=== PATIENT | male | born 1940 | race Two or more races ===

== ENCOUNTER 2017-01-26 10:34 | Emergency (ER) | payer MEDICARE, MEDICAID ==
[~2017-01-26 10:34] MED LIST: AKWA TEARS15 ML; ARTIFICIAL TEAR1510 EACH EYE; ASPIRIN EC81 MG PO; ASPIRIN81 MG; ATORVASTATIN CA40 M1 PO; AUGMENTIN 875-11 TAB; BACITRACIN1 G1 TOP; BACTRIM DS TABL1 TAB; BENICAR20 MG; CALCITRIOL0.25 MC1 PO; CALCITRIOL0.5 MCG; CARDURA2 M2 PO; CHANTIX1 M1 PO; CLARITIN10 M2 PO; COLACE100 M1 PO; COZAAR100 MG PO; DULCOLAX10 MG RC; FUROSEMIDE40 M2 PO; FUROSEMIDE40 MG; GLUCAGEN1 MG/1 ML IM; HUMALOG100 UNIT/1 SQ; INDOMETHACIN50 M1 PO; LANTUS SOL100 UNIT/1 SC; LANTUS SOL100 UNIT/1 SQ; LANTUS SOLOSTAR3 ML SQ; LANTUS100 U/ML; LANTUS100 UNITS/ SC; LEVEMIR FL100 UNIT/2 SC; LEVEMIR100 UNITS/ SC; LEVOTHYROXINE150 MC3 PO; LEVOTHYROXINE175 MC2 PO; LEVOTHYROXINE200 MC4 PO; LEVOXYL125 MC1 PO; LEXAPRO10 M2 PO; LIPITOR20 MG; LIPITOR20 MG PO; LORATADINE10 M2 PO; LYRICA75 MG; METOPROLOL SUCC25 M1 PO; METOPROLOL TART25 MG; MIRALAX17 G2 PO; NORCO 5-325 TA1 EACH PO; NORVASC5 M2 PO; NOVOLOG FL100 UNIT/2; NOVOLOG FL100 UNIT/2 SC; NOVOLOG100 U/M; PERCOCET 5/3251 TAB PO; SENNA S TABLET1 EACH PO; SODIUM BICARBO650 M1 PO; SSD25 GM TP; SULFAMYLON SOL250 M1 EXT; SULFAMYLON SOL250 M1 TOP; SWEEN 24255 GM TOP; SYNTHROID200 MCG; SYSTANE 0.3-0.1 EACH OP; TOPROL XL50 M1 PO; TRAMADOL HCL50 MG; TYLENOL WITH C1 EACH PO; TYLENOL325 M2 PO; VITAMIN D1000 UNI3 PO; VITAMIN D250000 UNI1 PO; VITAMIN D250000 UNIT PO; VITAMIN D31000 UNI3 PO; VITAMIN D350000 UNI1 PO; VITAMIN D50000 UNIT; [UNRECOGNIZED DRUG - OTHER]
[2017-01-26] MEDS ORDERED: KEPPRA500 M3 PO (10:59)
[2017-01-26] MEDS ORDERED: MAGNESIUM DR64 M2 PO (11:07)
[2017-01-26] MEDS ORDERED: METOPROLOL TART25 M1 PO (11:10)
[2017-01-26] MEDS ORDERED: NOVOLOG FL100 UNIT/2 SC (11:10)
[2017-01-26] MEDS ORDERED: HEMODIALYSIS (11:23)
[2017-01-26 11:38] LABS: BASO % 0.3 % (0-2); EOS % 5.1 % (0-7); EOSINOPHIL ABSOLUTE COUNT 0.5 tho/cmm (0.0-0.7); HCT-HEMATOCRIT 38.8 % (36.0-53.5); HGB-HEMOGLOBIN 12.6 gm/dl (13.5-17.0); IMMATURE GRANULOCYTES ABSOLUTE 0.02 tho/cmm (0-0.03); IMMATURE GRANULOCYTES PERCENT 0.2 % (0-0.3); LYMPH % 18.1 % (20-45); LYMPH ABSOLUTE COUNT 1.8 tho/cmm (0.8-4.5); MCH (MEAN CORPUSCULAR HGB) 29.6 pg (28.0-32.0); MCHC MEAN CORPUSCULAR HGB CONC 32.5 % (32.0-36.0); MCV (MEAN CELL VOLUME) 91.3 fl (82.0-96.0); MEAN PLATELET VOLUME 9.2 cmc (9.4-12.4); MONO % 6.6 % (0-12); MONOCYTE ABSOLUTE COUNT 0.7 tho/cmm (0.0-1.2); NEUTROPHIL ABSOLUTE COUNT 6.8 tho/cmm (1.6-8.0); NEUTROPHIL-AUTOMATED 6.8 tho/cmm (1.6-8.0); NEUTROPHILS % 69.7 % (40-80); PLATELET COUNT 164 tho/cmm (150-450); RED BLOOD COUNT 4.25 mil/cmm (4.40-5.70); RED CELL DISTRIBUTION WIDTH 13.1 % (12.4-16.4); WHITE BLOOD COUNT 9.8 tho/cmm (4.0-10.0)
[2017-01-26 11:54] LABS: ALB/GLOB RATIO 0.8 (0.8-2.0); ALBUMIN 2.8 g/dl (3.5-5.0); ALKALINE PHOSPHATASE 159 U/L (33-138); ALT/SGPT 10 U/L (12-78); ANION GAP 10 mmol/L (0-20); AST/SGOT 14 U/L (10-40); BILIRUBIN,TOTAL 0.3 mg/dl (0.0-1.5); BLOOD UREA NITROGEN 17 mg/dl (6-24); CALCIUM 7.5 mg/dl (8.5-10.5); CARBON DIOXIDE-VENOUS 31 mmol/L (22-32); CHLORIDE 105 mmol/l (96-110); CREATININE 2.89 mg/dl (0.60-1.30); GLUCOSE 321 mg/dL (70-110); POTASSIUM 4.3 mmol/L (3.7-5.1); SODIUM 142 mmol/L (135-145); eGFR VALUE FOR BLACK 23 mL/Min
[2017-01-29] MEDS ORDERED: MEDS (16:31)
== END 2017-01-26 12:23 ==
LOC: EDMED 10:34
PROVIDERS: Emergency Medicine
DX: R06.00 Dyspnea, unspecified (principal); I12.9 Hypertensive chronic kidney disease with stage 1 through stage 4 chronic kidney disease, or unspecified chronic kidney disease; N18.9 Chronic kidney disease, unspecified; I25.10 Atherosclerotic heart disease of native coronary artery without angina pectoris; E78.5 Hyperlipidemia, unspecified; Z86.73 Personal history of transient ischemic attack (TIA), and cerebral infarction without residual deficits; Z88.5 Allergy status to narcotic agent; Z79.4 Long term (current) use of insulin; Z79.899 Other long term (current) drug therapy; F17.200 Nicotine dependence, unspecified, uncomplicated

== ENCOUNTER 2017-01-30 10:14 | Day surgery (SDC) | payer MEDICARE, MEDICAID ==
[~2017-01-30 10:14] MED LIST changes: +HEMODIALYSIS; +KEPPRA500 M3 PO; +MAGNESIUM DR64 M2 PO; +MEDS; +METOPROLOL TART25 M1 PO
[2017-01-30 11:18] LABS: PROTHROMBIN TIME 11.9 SECONDS (9.0-13.6)
[2017-01-30 12:27] LABS: ANION GAP 12 mmol/L (0-20); BLOOD UREA NITROGEN 20 mg/dl (6-24); CALCIUM 7.8 mg/dl (8.5-10.5); CARBON DIOXIDE-VENOUS 30 mmol/L (22-32); CHLORIDE 103 mmol/l (96-110); CREATININE 3.01 mg/dl (0.60-1.30); GLUCOSE 231 mg/dL (70-110); POTASSIUM 4.7 mmol/L (3.7-5.1); SODIUM 140 mmol/L (135-145); eGFR VALUE FOR BLACK 22 mL/Min
== END 2017-01-30 18:20 ==
LOC: SRG 10:14 → SHSC 10:19 → ORW 12:05 → SHSC 14:40
PROVIDERS: Anesthesiology; Surgery Vascular Surgery
DX: E11.22 Type 2 diabetes mellitus with diabetic chronic kidney disease (principal); I12.0 Hypertensive chronic kidney disease with stage 5 chronic kidney disease or end stage renal disease; N18.6 End stage renal disease; I25.10 Atherosclerotic heart disease of native coronary artery without angina pectoris; Z95.1 Presence of aortocoronary bypass graft; E03.9 Hypothyroidism, unspecified; Z98.49 Cataract extraction status, unspecified eye; Z86.73 Personal history of transient ischemic attack (TIA), and cerebral infarction without residual deficits; Z79.899 Other long term (current) drug therapy; Z88.6 Allergy status to analgesic agent
CPT/HCPCS: C1768; C9290; J0690; J1644; J2720; J7030

== ENCOUNTER 2017-02-18 17:52 | Inpatient (IN) | payer MEDICARE, MEDICAID ==
[2017-02-18] MEDS ORDERED: BISCOLAX10 MG PR (18:28)
[2017-02-18] MEDS ORDERED: HYDROCODON-ACE1 EA16 PO ×2 (18:29→18:30)
[2017-02-18] MEDS ORDERED: FLEET ENEMA133 ML PR (18:29)
[2017-02-18 19:01] LABS: BASO % 0.1 % (0-2); EOS % 0.5 % (0-7); EOSINOPHIL ABSOLUTE COUNT 0.1 tho/cmm (0.0-0.7); HCT-HEMATOCRIT 31.9 % (36.0-53.5); HGB-HEMOGLOBIN 10.1 gm/dl (13.5-17.0); IMMATURE GRANULOCYTES ABSOLUTE 0.14 tho/cmm (0-0.03); IMMATURE GRANULOCYTES PERCENT 0.5 % (0-0.3); LYMPH % 8.3 % (20-45); LYMPH ABSOLUTE COUNT 2.3 tho/cmm (0.8-4.5); MCH (MEAN CORPUSCULAR HGB) 29.4 pg (28.0-32.0); MCHC MEAN CORPUSCULAR HGB CONC 31.7 % (32.0-36.0); MCV (MEAN CELL VOLUME) 92.7 fl (82.0-96.0); MEAN PLATELET VOLUME 8.5 cmc (9.4-12.4); MONO % 5.9 % (0-12); MONOCYTE ABSOLUTE COUNT 1.6 tho/cmm (0.0-1.2); NEUTROPHIL ABSOLUTE COUNT 23.1 tho/cmm (1.6-8.0); NEUTROPHIL-AUTOMATED 23.1 tho/cmm (1.6-8.0); NEUTROPHILS % 84.7 % (40-80); PLATELET COUNT 264 tho/cmm (150-450); RED BLOOD COUNT 3.44 mil/cmm (4.40-5.70); WHITE BLOOD COUNT 27.3 tho/cmm (4.0-10.0)
[2017-02-18 19:13] LABS: ANION GAP 12 mmol/L (0-20); BLOOD UREA NITROGEN 44 mg/dl (6-24); CALCIUM 7.9 mg/dl (8.5-10.5); CARBON DIOXIDE-VENOUS 28 mmol/L (22-32); CHLORIDE 99 mmol/l (96-110); CREATININE 4.45 mg/dl (0.60-1.30); GLUCOSE 234 mg/dL (70-110); POTASSIUM 4.3 mmol/L (3.7-5.1); SODIUM 135 mmol/L (135-145); eGFR VALUE FOR BLACK 14 mL/Min
[2017-02-18 19:38] LABS: PROCALCITONIN 0.58 ng/ml (0.05-0.09)
[2017-02-18 20:30] LABS: URINE BILIRUBIN NEGATIVE (NEG); URINE BLOOD SMALL (NEG); URINE GLUCOSE (UA) MODERATE (NEG); URINE KETONE NEGATIVE (NEG); URINE LEUKOCYTE ESTERASE NEGATIVE (NEG); URINE NITRITE NEGATIVE (NEG); URINE PROTEIN MODERATE (NEG)
[2017-02-18 20:31] LABS: URINE APPEARANCE HAZY; URINE COLOR DARK YELLOW
[2017-02-18 20:40] LABS: URINE RBC RARE /[HPF] (0-5); URINE WBC RARE /[HPF] (0-5)
[2017-02-18 20:41] LABS: URINE EPITHELIAL CELLS RARE /[HPF] (0-10)
[2017-02-19 05:35] LABS: BASO % 0.2 % (0-2); BASO ABSOLUTE COUNT 0.1 tho/cmm (0.0-0.2); EOS % 1.1 % (0-7); EOSINOPHIL ABSOLUTE COUNT 0.2 tho/cmm (0.0-0.7); HCT-HEMATOCRIT 31.9 % (36.0-53.5); IMMATURE GRANULOCYTES ABSOLUTE 0.12 tho/cmm (0-0.03); IMMATURE GRANULOCYTES PERCENT 0.5 % (0-0.3); LYMPH ABSOLUTE COUNT 1.6 tho/cmm (0.8-4.5); MCH (MEAN CORPUSCULAR HGB) 28.7 pg (28.0-32.0); MCHC MEAN CORPUSCULAR HGB CONC 31.3 % (32.0-36.0); MCV (MEAN CELL VOLUME) 91.7 fl (82.0-96.0); MEAN PLATELET VOLUME 8.2 cmc (9.4-12.4); MONO % 6.2 % (0-12); MONOCYTE ABSOLUTE COUNT 1.4 tho/cmm (0.0-1.2); NEUTROPHIL ABSOLUTE COUNT 19.1 tho/cmm (1.6-8.0); NEUTROPHIL-AUTOMATED 19.1 tho/cmm (1.6-8.0); PLATELET COUNT 254 tho/cmm (150-450); RED BLOOD COUNT 3.48 mil/cmm (4.40-5.70); RED CELL DISTRIBUTION WIDTH 15.7 % (12.4-16.4); WHITE BLOOD COUNT 22.5 tho/cmm (4.0-10.0)
[2017-02-19 05:49] LABS: ALB/GLOB RATIO 0.5 (0.8-2.0); ALBUMIN 2.1 g/dl (3.5-5.0); ALKALINE PHOSPHATASE 135 U/L (33-138); ANION GAP 16 mmol/L (0-20); AST/SGOT 13 U/L (10-40); BILIRUBIN,TOTAL 0.5 mg/dl (0.0-1.5); BLOOD UREA NITROGEN 46 mg/dl (6-24); CALCIUM 7.5 mg/dl (8.5-10.5); CARBON DIOXIDE-VENOUS 27 mmol/L (22-32); CHLORIDE 101 mmol/l (96-110); CREATININE 4.45 mg/dl (0.60-1.30); GLUCOSE 147 mg/dL (70-110); POTASSIUM 4.5 mmol/L (3.7-5.1); SODIUM 139 mmol/L (135-145); eGFR VALUE FOR BLACK 14 mL/Min
[2017-02-19 06:15] LABS: ALT/SGPT <10 U/L (12-78); C-REACTIVE PROTEIN 22.2 mg/dl (0-0.9)
[2017-02-19 06:27] LABS: PROCALCITONIN 0.58 ng/ml (0.05-0.09)
[2017-02-20 06:13] LABS: BLOOD UREA NITROGEN 29 mg/dl (6-24); CALCIUM 7.8 mg/dl (8.5-10.5); CARBON DIOXIDE-VENOUS 27 mmol/L (22-32); CHLORIDE 103 mmol/l (96-110); PHOSPHOROUS 2.9 mg/dl (2.5-4.9); SODIUM 137 mmol/L (135-145); eGFR VALUE FOR BLACK 21 mL/Min
[2017-02-20 06:24] LABS: BASO % 0.2 % (0-2); EOS % 1.9 % (0-7); EOSINOPHIL ABSOLUTE COUNT 0.3 tho/cmm (0.0-0.7); HCT-HEMATOCRIT 29.3 % (36.0-53.5); HGB-HEMOGLOBIN 9.3 gm/dl (13.5-17.0); IMMATURE GRANULOCYTES ABSOLUTE 0.07 tho/cmm (0-0.03); IMMATURE GRANULOCYTES PERCENT 0.4 % (0-0.3); LYMPH % 8.7 % (20-45); LYMPH ABSOLUTE COUNT 1.5 tho/cmm (0.8-4.5); MCH (MEAN CORPUSCULAR HGB) 29.2 pg (28.0-32.0); MCHC MEAN CORPUSCULAR HGB CONC 31.7 % (32.0-36.0); MCV (MEAN CELL VOLUME) 91.8 fl (82.0-96.0); MEAN PLATELET VOLUME 8.4 cmc (9.4-12.4); MONO % 7.9 % (0-12); MONOCYTE ABSOLUTE COUNT 1.4 tho/cmm (0.0-1.2); NEUTROPHIL ABSOLUTE COUNT 13.9 tho/cmm (1.6-8.0); NEUTROPHIL-AUTOMATED 13.9 tho/cmm (1.6-8.0); NEUTROPHILS % 80.9 % (40-80); PLATELET COUNT 289 tho/cmm (150-450); RED BLOOD COUNT 3.19 mil/cmm (4.40-5.70); RED CELL DISTRIBUTION WIDTH 15.5 % (12.4-16.4); WHITE BLOOD COUNT 17.2 tho/cmm (4.0-10.0)
[2017-02-20 07:00] LABS: ANION GAP 11 mmol/L (0-20); CREATININE 3.19 mg/dl (0.60-1.30); GLUCOSE 55 mg/dL (70-110); POTASSIUM 3.6 mmol/L (3.7-5.1)
[2017-02-21 06:34] LABS: PROCALCITONIN 0.59 ng/ml (0.05-0.09)
[2017-02-22 06:21] LABS: BASO % 0.3 % (0-2); EOS % 3.2 % (0-7); EOSINOPHIL ABSOLUTE COUNT 0.4 tho/cmm (0.0-0.7); HCT-HEMATOCRIT 29.2 % (36.0-53.5); HGB-HEMOGLOBIN 9.4 gm/dl (13.5-17.0); IMMATURE GRANULOCYTES ABSOLUTE 0.07 tho/cmm (0-0.03); IMMATURE GRANULOCYTES PERCENT 0.6 % (0-0.3); LYMPH % 24.9 % (20-45); LYMPH ABSOLUTE COUNT 2.8 tho/cmm (0.8-4.5); MCH (MEAN CORPUSCULAR HGB) 28.9 pg (28.0-32.0); MCHC MEAN CORPUSCULAR HGB CONC 32.2 % (32.0-36.0); MCV (MEAN CELL VOLUME) 89.8 fl (82.0-96.0); MEAN PLATELET VOLUME 8.1 cmc (9.4-12.4); MONO % 10.5 % (0-12); MONOCYTE ABSOLUTE COUNT 1.2 tho/cmm (0.0-1.2); NEUTROPHIL ABSOLUTE COUNT 6.7 tho/cmm (1.6-8.0); NEUTROPHIL-AUTOMATED 6.7 tho/cmm (1.6-8.0); NEUTROPHILS % 60.5 % (40-80); PLATELET COUNT 293 tho/cmm (150-450); RED BLOOD COUNT 3.25 mil/cmm (4.40-5.70); WHITE BLOOD COUNT 11.1 tho/cmm (4.0-10.0)
[2017-02-23] MEDS ORDERED: SINEMET 25-1001 EAC1 PO (12:42)
[2017-02-23 20:46] LABS: BASO % 0.3 % (0-2); BASO ABSOLUTE COUNT 0.1 tho/cmm (0.0-0.2); EOSINOPHIL ABSOLUTE COUNT 0.1 tho/cmm (0.0-0.7); HCT-HEMATOCRIT 32.2 % (36.0-53.5); HGB-HEMOGLOBIN 10.2 gm/dl (13.5-17.0); IMMATURE GRANULOCYTES ABSOLUTE 0.25 tho/cmm (0-0.03); IMMATURE GRANULOCYTES PERCENT 1.7 % (0-0.3); LYMPH % 11.2 % (20-45); LYMPH ABSOLUTE COUNT 1.6 tho/cmm (0.8-4.5); MCH (MEAN CORPUSCULAR HGB) 28.8 pg (28.0-32.0); MCHC MEAN CORPUSCULAR HGB CONC 31.7 % (32.0-36.0); MEAN PLATELET VOLUME 8.3 cmc (9.4-12.4); MONO % 11.1 % (0-12); MONOCYTE ABSOLUTE COUNT 1.6 tho/cmm (0.0-1.2); NEUTROPHIL ABSOLUTE COUNT 10.7 tho/cmm (1.6-8.0); NEUTROPHIL-AUTOMATED 10.7 tho/cmm (1.6-8.0); NEUTROPHILS % 74.7 % (40-80); PLATELET COUNT 331 tho/cmm (150-450); RED BLOOD COUNT 3.54 mil/cmm (4.40-5.70); RED CELL DISTRIBUTION WIDTH 15.4 % (12.4-16.4); WHITE BLOOD COUNT 14.4 tho/cmm (4.0-10.0)
[2017-02-23 21:03] LABS: ANION GAP 13 mmol/L (0-20); BLOOD UREA NITROGEN 13 mg/dl (6-24); CALCIUM 8.1 mg/dl (8.5-10.5); CARBON DIOXIDE-VENOUS 27 mmol/L (22-32); CHLORIDE 102 mmol/l (96-110); CREATININE 2.35 mg/dl (0.60-1.30); GLUCOSE 187 mg/dL (70-110); POTASSIUM 4.4 mmol/L (3.7-5.1); SODIUM 138 mmol/L (135-145); eGFR VALUE FOR BLACK 30 mL/Min
[2017-02-23 23:19] LABS: PROCALCITONIN 1.53 ng/ml (0.05-0.09)
--- NOTE | 2017-02-24 02:07 | NUR ---
PT HAVING INCREASED LETHARGY; DOES NOT AROUSE TO PAINFUL STIMULI. DAY RN CALLED AND GOT ORDERS FOR CT HEAD, CXR, EKG, AND LABS. GAVE MD AN UPDATE WITH THE LAB VALUES AND ADDITIONAL LABS WERE ORDERED (SEE CHART) ALONG WITH BLOOD CULTURES. PT CONTINUES TO BE LETHARGIC AND STILL DOES NOT AROUSE TO PAINFUL STIMULI.
[2017-02-25 05:36] LABS: BASO % 0.5 % (0-2); BASO ABSOLUTE COUNT 0.1 tho/cmm (0.0-0.2); EOS % 1.4 % (0-7); EOSINOPHIL ABSOLUTE COUNT 0.2 tho/cmm (0.0-0.7); HCT-HEMATOCRIT 32.5 % (36.0-53.5); HGB-HEMOGLOBIN 10.3 gm/dl (13.5-17.0); IMMATURE GRANULOCYTES ABSOLUTE 0.28 tho/cmm (0-0.03); IMMATURE GRANULOCYTES PERCENT 2.3 % (0-0.3); LYMPH % 14.3 % (20-45); LYMPH ABSOLUTE COUNT 1.7 tho/cmm (0.8-4.5); MCH (MEAN CORPUSCULAR HGB) 28.7 pg (28.0-32.0); MCHC MEAN CORPUSCULAR HGB CONC 31.7 % (32.0-36.0); MCV (MEAN CELL VOLUME) 90.5 fl (82.0-96.0); MEAN PLATELET VOLUME 8.3 cmc (9.4-12.4); MONO % 11.4 % (0-12); MONOCYTE ABSOLUTE COUNT 1.4 tho/cmm (0.0-1.2); NEUTROPHIL ABSOLUTE COUNT 8.5 tho/cmm (1.6-8.0); NEUTROPHIL-AUTOMATED 8.5 tho/cmm (1.6-8.0); NEUTROPHILS % 70.1 % (40-80); PLATELET COUNT 330 tho/cmm (150-450); RED BLOOD COUNT 3.59 mil/cmm (4.40-5.70); WHITE BLOOD COUNT 12.1 tho/cmm (4.0-10.0)
[2017-02-25 05:57] LABS: ANION GAP 16 mmol/L (0-20); CARBON DIOXIDE-VENOUS 23 mmol/L (22-32); CHLORIDE 105 mmol/l (96-110); CHOLESTEROL 99 mg/dl (120-200); GLUCOSE 195 mg/dL (70-110); HDL CHOLESTEROL 53 mg/dl (40-60); LDL CHOLESTEROL 27 mg/dl (0-99); POTASSIUM 4.4 mmol/L (3.7-5.1); SODIUM 140 mmol/L (135-145); TRIGLYCERIDES 95 mg/dl (<149); VLDL 19 mg/dl (0-30); eGFR VALUE FOR BLACK 17 mL/Min
[2017-02-25 06:36] LABS: BLOOD UREA NITROGEN 26 mg/dl (6-24); CREATININE 3.66 mg/dl (0.60-1.30)
[2017-02-25 06:44] LABS: PROCALCITONIN 0.86 ng/ml (0.05-0.09)
[2017-02-26 11:06] LABS: BASO % 0.3 % (0-2); BASO ABSOLUTE COUNT 0.1 tho/cmm (0.0-0.2); EOS % 1.3 % (0-7); EOSINOPHIL ABSOLUTE COUNT 0.2 tho/cmm (0.0-0.7); HCT-HEMATOCRIT 34.1 % (36.0-53.5); HGB-HEMOGLOBIN 10.9 gm/dl (13.5-17.0); IMMATURE GRANULOCYTES ABSOLUTE 0.31 tho/cmm (0-0.03); IMMATURE GRANULOCYTES PERCENT 2.1 % (0-0.3); LYMPH % 7.7 % (20-45); LYMPH ABSOLUTE COUNT 1.2 tho/cmm (0.8-4.5); MCV (MEAN CELL VOLUME) 90.7 fl (82.0-96.0); MEAN PLATELET VOLUME 8.3 cmc (9.4-12.4); MONO % 6.8 % (0-12); NEUTROPHIL ABSOLUTE COUNT 12.2 tho/cmm (1.6-8.0); NEUTROPHIL-AUTOMATED 12.2 tho/cmm (1.6-8.0); NEUTROPHILS % 81.8 % (40-80); PLATELET COUNT 345 tho/cmm (150-450); RED BLOOD COUNT 3.76 mil/cmm (4.40-5.70); RED CELL DISTRIBUTION WIDTH 15.9 % (12.4-16.4); WHITE BLOOD COUNT 14.9 tho/cmm (4.0-10.0)
[2017-02-26 11:18] LABS: ABG CO2 ARTERIAL 25 mmol/L (21-27); ARTERIAL BLD GAS O2 SATURATION 100 % (95-98); ARTERIAL BLOOD GAS PCO2 35 mmHg (32-45); ARTERIAL PO2 157 mmHg (70-100); BICARBONATE 24 mmol/L (21-28); BLOOD GAS BASE EXCESS 1 mM/L (-/+3); PH 7.46 Units (7.35-7.45)
[2017-02-26 11:34] LABS: ALB/GLOB RATIO 0.5 (0.8-2.0); ALBUMIN 2.4 g/dl (3.5-5.0); ALKALINE PHOSPHATASE 141 U/L (33-138); AST/SGOT 11 U/L (10-40); BILIRUBIN,TOTAL 0.5 mg/dl (0.0-1.5); BLOOD UREA NITROGEN 17 mg/dl (6-24); CARBON DIOXIDE-VENOUS 25 mmol/L (22-32); CHLORIDE 106 mmol/l (96-110); GLUCOSE 185 mg/dL (70-110); SODIUM 142 mmol/L (135-145)
[2017-02-26 11:36] LABS: ANION GAP 15 mmol/L (0-20); CREATININE 2.34 mg/dl (0.60-1.30); POTASSIUM 3.5 mmol/L (3.7-5.1); eGFR VALUE FOR BLACK 30 mL/Min
[2017-02-26 11:37] LABS: ALT/SGPT 9 U/L (12-78)
--- NOTE | 2017-02-26 12:45 | NUR ---
DAUGHTER AT BEDSIDE, REPORTS PT WOULD VALUE HAVING THE SACRAMENT OF THE SICK. SPOKE WITH CHAPLAIN PHILIPPE - SHE CALLED FATHER AND HE WILL SEE PT TODAY.
[2017-02-27 04:09] LABS: ALBUMIN 2.5 g/dl (3.5-5.0); ANION GAP 14 mmol/L (0-20); BLOOD UREA NITROGEN 22 mg/dl (6-24); CALCIUM 7.7 mg/dl (8.5-10.5); CARBON DIOXIDE-VENOUS 24 mmol/L (22-32); CHLORIDE 107 mmol/l (96-110); GLUCOSE 121 mg/dL (70-110); SODIUM 141 mmol/L (135-145); eGFR VALUE FOR BLACK 18 mL/Min
[2017-02-27 04:17] LABS: CREATININE 3.56 mg/dl (0.60-1.30)
[2017-02-27 04:43] LABS: ABG CO2 ARTERIAL 25 mmol/L (21-27); ARTERIAL BLD GAS O2 SATURATION 97 % (95-98); ARTERIAL BLOOD GAS PCO2 38 mmHg (32-45); ARTERIAL PO2 109 mmHg (70-100); BICARBONATE 24 mmol/L (21-28); BLOOD GAS BASE EXCESS 0 mM/L (-/+3); PH 7.41 Units (7.35-7.45)
[2017-02-27 05:21] LABS: PROCALCITONIN 2.06 ng/ml (0.05-0.09)
[2017-03-01 11:45] LABS: PROCALCITONIN 0.42 ng/ml (0.05-0.09)
[2017-03-01] MEDS ORDERED: HEPARIN SO5000 UNIT1 SC (15:06)
[2017-03-01] MEDS ORDERED: TYLENOL325 M2 PO (15:09)
[2017-03-01] MEDS ORDERED: ASPIRIN325 M3 PO (15:10)
[2017-03-01] MEDS ORDERED: ZOFRAN4 M2 PO (15:13)
[2017-03-01] MEDS ORDERED: NOVOLOG (15:18)
== END 2017-03-01 15:33 | DRG 70 ==
LOC: EDMED 17:52 → EMR2 02-19 00:55 → 5EB 02-19 00:56 → CCU 02-26 11:03 → 5EB 02-28 17:15
PROVIDERS: Emergency Medicine; Family Medicine; Internal Medicine Critical Care Medicine; Internal Medicine Nephrology; ADMIT Family Medicine
PROC: 5A1D60Z (ICD-10-PCS; principal; 2017-02-19)
PROC: B348ZZZ Ultrasonography of Bilateral Internal Carotid Arteries (ICD-10-PCS; 2017-02-24)
PROC: 5A1935Z Respiratory Ventilation, Less than 24 Consecutive Hours (ICD-10-PCS; 2017-02-26)
DX: G93.41 Metabolic encephalopathy (principal); J96.01 Acute respiratory failure with hypoxia; I62.9 Nontraumatic intracranial hemorrhage, unspecified; E46 Unspecified protein-calorie malnutrition; N25.81 Secondary hyperparathyroidism of renal origin; R13.10 Dysphagia, unspecified; N18.6 End stage renal disease; E11.22 Type 2 diabetes mellitus with diabetic chronic kidney disease; I13.11 Hypertensive heart and chronic kidney disease without heart failure, with stage 5 chronic kidney disease, or end stage renal disease; J98.11 Atelectasis; Z51.5 Encounter for palliative care; E11.621 Type 2 diabetes mellitus with foot ulcer; Z99.2 Dependence on renal dialysis; D63.1 Anemia in chronic kidney disease; E03.9 Hypothyroidism, unspecified; E21.3 Hyperparathyroidism, unspecified; F09 Unspecified mental disorder due to known physiological condition; G40.909 Epilepsy, unspecified, not intractable, without status epilepticus; I25.10 Atherosclerotic heart disease of native coronary artery without angina pectoris; I25.2 Old myocardial infarction; I73.9 Peripheral vascular disease, unspecified; R62.7 Adult failure to thrive; I65.29 Occlusion and stenosis of unspecified carotid artery; Z96.642 Presence of left artificial hip joint; G31.9 Degenerative disease of nervous system, unspecified; Z68.21 Body mass index [BMI] 21.0-21.9, adult; L97.529 Non-pressure chronic ulcer of other part of left foot with unspecified severity; Z79.4 Long term (current) use of insulin; D72.829 Elevated white blood cell count, unspecified
CPT/HCPCS: C1751; G8987-GO-CL; G8988-GO-CK; G8989-GO-CL; G8996-GN-CJ; G8997-GN-CI; J0713; J0885; J1644; J1815; J1953; J2543; J3370; J7030; J7050; P9045; P9612

== ENCOUNTER 2017-03-04 11:55 | Inpatient (IN) | payer MEDICARE, MEDICAID ==
[~2017-03-04 11:55] MED LIST changes: +ASPIRIN325 M3 PO; +BISCOLAX10 MG PR; +FLEET ENEMA133 ML PR; +HEPARIN SO5000 UNIT1 SC; +HYDROCODON-ACE1 EA16 PO; +NOVOLOG; +SINEMET 25-1001 EAC1 PO; +ZOFRAN4 M2 PO
[2017-03-04 14:32] LABS: BASO % 0.1 % (0-2); HCT-HEMATOCRIT 32.9 % (36.0-53.5); HGB-HEMOGLOBIN 10.7 gm/dl (13.5-17.0); IMMATURE GRANULOCYTES ABSOLUTE 0.49 tho/cmm (0-0.03); IMMATURE GRANULOCYTES PERCENT 2.3 % (0-0.3); LYMPH % 3.8 % (20-45); LYMPH ABSOLUTE COUNT 0.8 tho/cmm (0.8-4.5); MCH (MEAN CORPUSCULAR HGB) 29.1 pg (28.0-32.0); MCHC MEAN CORPUSCULAR HGB CONC 32.5 % (32.0-36.0); MCV (MEAN CELL VOLUME) 89.4 fl (82.0-96.0); MEAN PLATELET VOLUME 8.1 cmc (9.4-12.4); MONO % 7.2 % (0-12); MONOCYTE ABSOLUTE COUNT 1.6 tho/cmm (0.0-1.2); NEUTROPHIL ABSOLUTE COUNT 18.6 tho/cmm (1.6-8.0); NEUTROPHIL-AUTOMATED 18.6 tho/cmm (1.6-8.0); NEUTROPHILS % 86.6 % (40-80); PLATELET COUNT 356 tho/cmm (150-450); RED BLOOD COUNT 3.68 mil/cmm (4.40-5.70); RED CELL DISTRIBUTION WIDTH 16.2 % (12.4-16.4); WHITE BLOOD COUNT 21.5 tho/cmm (4.0-10.0)
[2017-03-04 14:41] LABS: ANION GAP 19 mmol/L (0-20); BLOOD UREA NITROGEN 15 mg/dl (6-24); CALCIUM 7.9 mg/dl (8.5-10.5); CARBON DIOXIDE-VENOUS 22 mmol/L (22-32); CHLORIDE 101 mmol/l (96-110); CREATININE 1.95 mg/dl (0.60-1.30); GLUCOSE 269 mg/dL (70-110); POTASSIUM 3.6 mmol/L (3.7-5.1); SODIUM 138 mmol/L (135-145); eGFR VALUE FOR BLACK 37 mL/Min
[2017-03-04 15:34] LABS: PROCALCITONIN 0.57 ng/ml (0.05-0.09)
--- NOTE | 2017-03-04 18:30 | NUR ---
1200 RECIEVED VIA AMBULANCE FROM [facility]. EYES CLOSED, ARMS FLEXED WITH HANDS IN FLEXED POSITION. LEGS STIFF. GAZE MIDLINE CONJUGATE. NO RESPONSE TO PAIN OR TACTILE STIMULI OTHER THAN MOANS. YAWNS AND HAS HICCOUGHS. [address] MOON HERE. CONDITION UNCHANGED. 1415 IV STARTED IN RT. FOREARM AND 500CC NS BOLUS STARTED. NO CHANGE IN NEURO STATUS. INCONTINENT OF SOFT BROWN STOOL AND SM. AMT. URINE. [address] SCAN VIA BED. 1600 CT RESULTS RECIEVED FROM DR. AZUL WHO ATTEMPTED TO CALL DR. ROSE. DAUGHTER GIVEN PRELIMINARY CT RESULTS. PAST[facility] CALLED. [address]15 DR[address] ROSE CALLED WITH CT RESULTS AND CONDITION UPDATE, ORDERS RECIEVED. 1700 DR. ROSE CALLS BACK, ADDITIONAL ORDERS RECIEVED. 1800 PROTAMINE 12.5MG IVP GIVEN OVER [address] ROCA HERE, EXAMINES PATIENT AND TALKS WITH FAMILY. NYSTAGMUS OF EYES TO LEFT NOTED.
[2017-03-04 21:46] LABS: BASO % 0.1 % (0-2); HCT-HEMATOCRIT 31.9 % (36.0-53.5); HGB-HEMOGLOBIN 10.3 gm/dl (13.5-17.0); IMMATURE GRANULOCYTES ABSOLUTE 0.35 tho/cmm (0-0.03); IMMATURE GRANULOCYTES PERCENT 2.2 % (0-0.3); LYMPH % 5.1 % (20-45); LYMPH ABSOLUTE COUNT 0.8 tho/cmm (0.8-4.5); MCH (MEAN CORPUSCULAR HGB) 29.1 pg (28.0-32.0); MCHC MEAN CORPUSCULAR HGB CONC 32.3 % (32.0-36.0); MCV (MEAN CELL VOLUME) 90.1 fl (82.0-96.0); MEAN PLATELET VOLUME 8.3 cmc (9.4-12.4); MONO % 3.1 % (0-12); MONOCYTE ABSOLUTE COUNT 0.5 tho/cmm (0.0-1.2); NEUTROPHIL ABSOLUTE COUNT 14.4 tho/cmm (1.6-8.0); NEUTROPHIL-AUTOMATED 14.4 tho/cmm (1.6-8.0); NEUTROPHILS % 89.5 % (40-80); PLATELET COUNT 359 tho/cmm (150-450); RED BLOOD COUNT 3.54 mil/cmm (4.40-5.70); WHITE BLOOD COUNT 16.1 tho/cmm (4.0-10.0)
[2017-03-04 21:52] LABS: ABG CO2 ARTERIAL 21 mmol/L (21-27); ARTERIAL BLD GAS O2 SATURATION 98 % (95-98); ARTERIAL BLOOD GAS PCO2 31 mmHg (32-45); ARTERIAL PO2 99 mmHg (70-100); BICARBONATE 20 mmol/L (21-28); BLOOD GAS BASE EXCESS -4 mM/L (-/+3); PH 7.42 Units (7.35-7.45)
[2017-03-04 21:58] LABS: ANION GAP 18 mmol/L (0-20); BLOOD UREA NITROGEN 21 mg/dl (6-24); CALCIUM 7.6 mg/dl (8.5-10.5); CARBON DIOXIDE-VENOUS 21 mmol/L (22-32); CHLORIDE 103 mmol/l (96-110); CREATININE 2.35 mg/dl (0.60-1.30); GLUCOSE 326 mg/dL (70-110); SODIUM 138 mmol/L (135-145); eGFR VALUE FOR BLACK 30 mL/Min
[2017-03-05 04:55] LABS: ABG CO2 ARTERIAL 22 mmol/L (21-27); ARTERIAL BLD GAS O2 SATURATION 93 % (95-98); ARTERIAL BLOOD GAS PCO2 25 mmHg (32-45); ARTERIAL PO2 63 mmHg (70-100); BICARBONATE 21 mmol/L (21-28); BLOOD GAS BASE EXCESS 0 mM/L (-/+3); PH 7.54 Units (7.35-7.45)
[2017-03-05 05:55] LABS: BASO % 0.1 % (0-2); HCT-HEMATOCRIT 30.9 % (36.0-53.5); HGB-HEMOGLOBIN 10.1 gm/dl (13.5-17.0); IMMATURE GRANULOCYTES ABSOLUTE 0.27 tho/cmm (0-0.03); IMMATURE GRANULOCYTES PERCENT 1.2 % (0-0.3); LYMPH ABSOLUTE COUNT 1.6 tho/cmm (0.8-4.5); MCHC MEAN CORPUSCULAR HGB CONC 32.7 % (32.0-36.0); MCV (MEAN CELL VOLUME) 88.8 fl (82.0-96.0); MEAN PLATELET VOLUME 8.3 cmc (9.4-12.4); MONO % 7.5 % (0-12); MONOCYTE ABSOLUTE COUNT 1.7 tho/cmm (0.0-1.2); NEUTROPHIL ABSOLUTE COUNT 19.1 tho/cmm (1.6-8.0); NEUTROPHIL-AUTOMATED 19.1 tho/cmm (1.6-8.0); NEUTROPHILS % 84.2 % (40-80); PLATELET COUNT 420 tho/cmm (150-450); RED BLOOD COUNT 3.48 mil/cmm (4.40-5.70); RED CELL DISTRIBUTION WIDTH 16.3 % (12.4-16.4); WHITE BLOOD COUNT 22.7 tho/cmm (4.0-10.0)
[2017-03-05 06:07] LABS: BLOOD UREA NITROGEN 30 mg/dl (6-24); CALCIUM 7.9 mg/dl (8.5-10.5); CARBON DIOXIDE-VENOUS 21 mmol/L (22-32); CHLORIDE 104 mmol/l (96-110); GLUCOSE 209 mg/dL (70-110); SODIUM 140 mmol/L (135-145); eGFR VALUE FOR BLACK 22 mL/Min
[2017-03-05 06:12] LABS: ANION GAP 18 mmol/L (0-20); CREATININE 3.03 mg/dl (0.60-1.30)
[2017-03-06 03:32] LABS: ABG CO2 ARTERIAL 20 mmol/L (21-27); ARTERIAL BLD GAS O2 SATURATION 91 % (95-98); ARTERIAL BLOOD GAS PCO2 23 mmHg (32-45); ARTERIAL PO2 60 mmHg (70-100); BICARBONATE 19 mmol/L (21-28); BLOOD GAS BASE EXCESS -3 mM/L (-/+3); PH 7.52 Units (7.35-7.45)
[2017-03-06 04:09] LABS: ALBUMIN 2.2 g/dl (3.5-5.0); ANION GAP 18 mmol/L (0-20); CALCIUM 7.1 mg/dl (8.5-10.5); CARBON DIOXIDE-VENOUS 20 mmol/L (22-32); CHLORIDE 106 mmol/l (96-110); MAGNESIUM 2.1 mg/dl (1.8-2.6); PHOSPHOROUS 3.1 mg/dl (2.5-4.9); POTASSIUM 3.6 mmol/L (3.7-5.1); SODIUM 140 mmol/L (135-145); eGFR VALUE FOR BLACK 16 mL/Min
[2017-03-06 04:11] LABS: BLOOD UREA NITROGEN 48 mg/dl (6-24); GLUCOSE 359 mg/dL (70-110)
[2017-03-07 03:43] LABS: ALBUMIN 2.1 g/dl (3.5-5.0); ANION GAP 14 mmol/L (0-20); BLOOD UREA NITROGEN 27 mg/dl (6-24); CALCIUM 7.1 mg/dl (8.5-10.5); CARBON DIOXIDE-VENOUS 26 mmol/L (22-32); CHLORIDE 104 mmol/l (96-110); PHOSPHOROUS 1.9 mg/dl (2.5-4.9); SODIUM 140 mmol/L (135-145); eGFR VALUE FOR BLACK 28 mL/Min
[2017-03-07 03:44] LABS: CREATININE 2.45 mg/dl (0.60-1.30); GLUCOSE 165 mg/dL (70-110)
[2017-03-07 03:45] LABS: BASO % 0.1 % (0-2); EOS % 0.2 % (0-7); HCT-HEMATOCRIT 27.8 % (36.0-53.5); IMMATURE GRANULOCYTES ABSOLUTE 0.19 tho/cmm (0-0.03); IMMATURE GRANULOCYTES PERCENT 0.9 % (0-0.3); LYMPH % 6.7 % (20-45); LYMPH ABSOLUTE COUNT 1.5 tho/cmm (0.8-4.5); MCH (MEAN CORPUSCULAR HGB) 29.5 pg (28.0-32.0); MCHC MEAN CORPUSCULAR HGB CONC 32.4 % (32.0-36.0); MCV (MEAN CELL VOLUME) 91.1 fl (82.0-96.0); MEAN PLATELET VOLUME 8.6 cmc (9.4-12.4); MONO % 7.9 % (0-12); MONOCYTE ABSOLUTE COUNT 1.8 tho/cmm (0.0-1.2); NEUTROPHIL ABSOLUTE COUNT 18.8 tho/cmm (1.6-8.0); NEUTROPHIL-AUTOMATED 18.8 tho/cmm (1.6-8.0); NEUTROPHILS % 84.2 % (40-80); PLATELET COUNT 329 tho/cmm (150-450); RED BLOOD COUNT 3.05 mil/cmm (4.40-5.70); RED CELL DISTRIBUTION WIDTH 17.8 % (12.4-16.4); WHITE BLOOD COUNT 22.3 tho/cmm (4.0-10.0)
[2017-03-08 04:02] LABS: ABG CO2 ARTERIAL 26 mmol/L (21-27); ARTERIAL BLD GAS O2 SATURATION 93 % (95-98); ARTERIAL BLOOD GAS PCO2 29 mmHg (32-45); ARTERIAL PO2 64 mmHg (70-100); BICARBONATE 25 mmol/L (21-28); BLOOD GAS BASE EXCESS 3 mM/L (-/+3); PH 7.54 Units (7.35-7.45)
[2017-03-08 04:07] LABS: ANION GAP 15 mmol/L (0-20); CALCIUM 6.9 mg/dl (8.5-10.5); CARBON DIOXIDE-VENOUS 26 mmol/L (22-32); CHLORIDE 102 mmol/l (96-110); GLUCOSE 143 mg/dL (70-110); MAGNESIUM 1.9 mg/dl (1.8-2.6); POTASSIUM 4.6 mmol/L (3.7-5.1); SODIUM 138 mmol/L (135-145); eGFR VALUE FOR BLACK 19 mL/Min
[2017-03-08 04:25] LABS: BLOOD UREA NITROGEN 48 mg/dl (6-24); CREATININE 3.34 mg/dl (0.60-1.30)
[2017-03-09 04:11] LABS: HGB-HEMOGLOBIN 8.2 gm/dl (13.5-17.0); PLATELET COUNT 319 tho/cmm (150-450)
[2017-03-10 05:06] LABS: ABG CO2 ARTERIAL 27 mmol/L (21-27); ARTERIAL BLD GAS O2 SATURATION 87 % (95-98); ARTERIAL BLOOD GAS PCO2 31 mmHg (32-45); ARTERIAL PO2 52 mmHg (70-100); BICARBONATE 26 mmol/L (21-28); BLOOD GAS BASE EXCESS 3 mM/L (-/+3); PH 7.53 Units (7.35-7.45)
[2017-03-11 05:15] LABS: PLATELET COUNT 397 tho/cmm (150-450)
[2017-03-11 09:18] LABS: BASO % 0.2 % (0-2); EOS % 1.3 % (0-7); EOSINOPHIL ABSOLUTE COUNT 0.2 tho/cmm (0.0-0.7); HCT-HEMATOCRIT 26.8 % (36.0-53.5); HGB-HEMOGLOBIN 8.5 gm/dl (13.5-17.0); IMMATURE GRANULOCYTES ABSOLUTE 0.18 tho/cmm (0-0.03); LYMPH % 7.2 % (20-45); LYMPH ABSOLUTE COUNT 1.3 tho/cmm (0.8-4.5); MCH (MEAN CORPUSCULAR HGB) 28.8 pg (28.0-32.0); MCHC MEAN CORPUSCULAR HGB CONC 31.7 % (32.0-36.0); MCV (MEAN CELL VOLUME) 90.8 fl (82.0-96.0); MEAN PLATELET VOLUME 8.9 cmc (9.4-12.4); MONO % 6.4 % (0-12); MONOCYTE ABSOLUTE COUNT 1.2 tho/cmm (0.0-1.2); NEUTROPHILS % 83.9 % (40-80); PLATELET COUNT 371 tho/cmm (150-450); RED BLOOD COUNT 2.95 mil/cmm (4.40-5.70); RED CELL DISTRIBUTION WIDTH 16.8 % (12.4-16.4); WHITE BLOOD COUNT 17.8 tho/cmm (4.0-10.0)
[2017-03-11 09:25] LABS: INR 1.3 INR (0.9-1.1); PROTHROMBIN TIME 14.7 SECONDS (9.0-13.6)
[2017-03-11 09:35] LABS: ALB/GLOB RATIO 0.5 (0.8-2.0); ALBUMIN 1.9 g/dl (3.5-5.0); ALKALINE PHOSPHATASE 194 U/L (33-138); ALT/SGPT 11 U/L (12-78); ANION GAP 19 mmol/L (0-20); AST/SGOT 38 U/L (10-40); BILIRUBIN,TOTAL 0.5 mg/dl (0.0-1.5); BLOOD UREA NITROGEN 78 mg/dl (6-24); CALCIUM 7.6 mg/dl (8.5-10.5); CARBON DIOXIDE-VENOUS 23 mmol/L (22-32); CHLORIDE 103 mmol/l (96-110); CREATININE 3.75 mg/dl (0.60-1.30); GLUCOSE 262 mg/dL (70-110); MAGNESIUM 2.3 mg/dl (1.8-2.6); POTASSIUM 5.7 mmol/L (3.7-5.1); SODIUM 139 mmol/L (135-145); eGFR VALUE FOR BLACK 17 mL/Min
[2017-03-12 05:13] LABS: HCT-HEMATOCRIT 27.2 % (36.0-53.5); HGB-HEMOGLOBIN 8.5 gm/dl (13.5-17.0); MCH (MEAN CORPUSCULAR HGB) 28.4 pg (28.0-32.0); MCHC MEAN CORPUSCULAR HGB CONC 31.3 % (32.0-36.0); NEUTROPHIL-AUTOMATED 10.4 tho/cmm (1.6-8.0); PLATELET COUNT 395 tho/cmm (150-450); RED BLOOD COUNT 2.99 mil/cmm (4.40-5.70); RED CELL DISTRIBUTION WIDTH 16.8 % (12.4-16.4); WHITE BLOOD COUNT 13.7 tho/cmm (4.0-10.0)
[2017-03-12 05:22] LABS: BLOOD UREA NITROGEN 47 mg/dl (6-24); CALCIUM 7.5 mg/dl (8.5-10.5); CARBON DIOXIDE-VENOUS 26 mmol/L (22-32); CHLORIDE 101 mmol/l (96-110); GLUCOSE 322 mg/dL (70-110); SODIUM 136 mmol/L (135-145); eGFR VALUE FOR BLACK 26 mL/Min
[2017-03-12 05:24] LABS: ANION GAP 14 mmol/L (0-20); POTASSIUM 4.6 mmol/L (3.7-5.1)
[2017-03-12 05:28] LABS: ABG CO2 ARTERIAL 27 mmol/L (21-27); ARTERIAL BLD GAS O2 SATURATION 98 % (95-98); ARTERIAL BLOOD GAS PCO2 34 mmHg (32-45); ARTERIAL PO2 101 mmHg (70-100); BICARBONATE 26 mmol/L (21-28); BLOOD GAS BASE EXCESS 4 mM/L (-/+3); PH 7.51 Units (7.35-7.45)
[2017-03-12 06:35] LABS: BAND % 11 % (0-20); BAND ABSOLUTE COUNT 1.5 tho/cmm (0-2.0); EOSINOPHIL % 2 % (0-7)
[2017-03-15 05:06] LABS: BASO % 0.3 % (0-2); EOS % 0.7 % (0-7); EOSINOPHIL ABSOLUTE COUNT 0.1 tho/cmm (0.0-0.7); HCT-HEMATOCRIT 24.8 % (36.0-53.5); HGB-HEMOGLOBIN 7.7 gm/dl (13.5-17.0); IMMATURE GRANULOCYTES PERCENT 0.6 % (0-0.3); LYMPH % 16.3 % (20-45); LYMPH ABSOLUTE COUNT 2.6 tho/cmm (0.8-4.5); MCH (MEAN CORPUSCULAR HGB) 28.1 pg (28.0-32.0); MCV (MEAN CELL VOLUME) 90.5 fl (82.0-96.0); MEAN PLATELET VOLUME 9.1 cmc (9.4-12.4); MONO % 5.4 % (0-12); MONOCYTE ABSOLUTE COUNT 0.9 tho/cmm (0.0-1.2); NEUTROPHIL ABSOLUTE COUNT 12.2 tho/cmm (1.6-8.0); NEUTROPHIL-AUTOMATED 12.2 tho/cmm (1.6-8.0); NEUTROPHILS % 76.7 % (40-80); PLATELET COUNT 424 tho/cmm (150-450); RED BLOOD COUNT 2.74 mil/cmm (4.40-5.70); RED CELL DISTRIBUTION WIDTH 16.5 % (12.4-16.4); WHITE BLOOD COUNT 15.9 tho/cmm (4.0-10.0)
[2017-03-15 05:13] LABS: ALBUMIN 1.7 g/dl (3.5-5.0); ANION GAP 15 mmol/L (0-20); BLOOD UREA NITROGEN 54 mg/dl (6-24); CALCIUM 7.5 mg/dl (8.5-10.5); CARBON DIOXIDE-VENOUS 25 mmol/L (22-32); CHLORIDE 102 mmol/l (96-110); CREATININE 3.38 mg/dl (0.60-1.30); GLUCOSE 143 mg/dL (70-110); PHOSPHOROUS 2.8 mg/dl (2.5-4.9); SODIUM 138 mmol/L (135-145); eGFR VALUE FOR BLACK 19 mL/Min
[2017-03-17 03:38] LABS: IRON 21 ug/dl (49-181); IRON BINDING CAPACITY 136 ug/dl (250-450)
[2017-03-18 03:48] LABS: BASO % 0.2 % (0-2); EOS % 2.1 % (0-7); EOSINOPHIL ABSOLUTE COUNT 0.4 tho/cmm (0.0-0.7); HCT-HEMATOCRIT 26.8 % (36.0-53.5); HGB-HEMOGLOBIN 8.3 gm/dl (13.5-17.0); IMMATURE GRANULOCYTES ABSOLUTE 0.19 tho/cmm (0-0.03); IMMATURE GRANULOCYTES PERCENT 1.1 % (0-0.3); LYMPH % 16.1 % (20-45); LYMPH ABSOLUTE COUNT 2.7 tho/cmm (0.8-4.5); MCH (MEAN CORPUSCULAR HGB) 27.9 pg (28.0-32.0); MCV (MEAN CELL VOLUME) 90.2 fl (82.0-96.0); MEAN PLATELET VOLUME 8.9 cmc (9.4-12.4); MONO % 6.6 % (0-12); MONOCYTE ABSOLUTE COUNT 1.1 tho/cmm (0.0-1.2); NEUTROPHIL ABSOLUTE COUNT 12.4 tho/cmm (1.6-8.0); NEUTROPHIL-AUTOMATED 12.4 tho/cmm (1.6-8.0); NEUTROPHILS % 73.9 % (40-80); PLATELET COUNT 506 tho/cmm (150-450); RED BLOOD COUNT 2.97 mil/cmm (4.40-5.70); RED CELL DISTRIBUTION WIDTH 16.6 % (12.4-16.4); WHITE BLOOD COUNT 16.8 tho/cmm (4.0-10.0)
[2017-03-18 03:53] LABS: ANION GAP 15 mmol/L (0-20); BLOOD UREA NITROGEN 72 mg/dl (6-24); CALCIUM 7.7 mg/dl (8.5-10.5); CARBON DIOXIDE-VENOUS 28 mmol/L (22-32); CHLORIDE 102 mmol/l (96-110); CREATININE 3.77 mg/dl (0.60-1.30); GLUCOSE 163 mg/dL (70-110); MAGNESIUM 2.3 mg/dl (1.8-2.6); PHOSPHOROUS 2.4 mg/dl (2.5-4.9); POTASSIUM 4.1 mmol/L (3.7-5.1); SODIUM 141 mmol/L (135-145); eGFR VALUE FOR BLACK 17 mL/Min
[2017-03-18 04:45] LABS: ABG CO2 ARTERIAL 29 mmol/L (21-27); ARTERIAL BLD GAS O2 SATURATION 91 % (95-98); ARTERIAL BLOOD GAS PCO2 34 mmHg (32-45); ARTERIAL PO2 59 mmHg (70-100); BICARBONATE 28 mmol/L (21-28); BLOOD GAS BASE EXCESS 5 mM/L (-/+3); PH 7.52 Units (7.35-7.45)
== END 2017-03-18 15:15 | disposition other institution (70) | DRG 3 ==
LOC: CCU 11:55 → ORE 19:22 → CCU 21:15 → ORW 03-14 07:57 → CCU 03-14 10:27
PROVIDERS: Family Medicine; Internal Medicine Critical Care Medicine; Internal Medicine Nephrology; Internal Medicine Pulmonary Disease; Neurological Surgery; ADMIT Family Medicine
PROC: 00C70ZZ Extirpation of Matter from Cerebral Hemisphere, Open Approach (ICD-10-PCS; principal; 2017-03-04)
PROC: 5A1955Z Respiratory Ventilation, Greater than 96 Consecutive Hours (ICD-10-PCS; 2017-03-04)
PROC: 0BH17EZ Insertion of Endotracheal Airway into Trachea, Via Natural or Artificial Opening (ICD-10-PCS; 2017-03-04)
PROC: 02HV33Z Insertion of Infusion Device into Superior Vena Cava, Percutaneous Approach (ICD-10-PCS; 2017-03-05)
PROC: 5A1D60Z (ICD-10-PCS; 2017-03-06)
PROC: 0B113F4 Bypass Trachea to Cutaneous with Tracheostomy Device, Percutaneous Approach (ICD-10-PCS; 2017-03-14)
PROC: 0DH63UZ Insertion of Feeding Device into Stomach, Percutaneous Approach (ICD-10-PCS; 2017-03-14)
PROC: 0BJ08ZZ Inspection of Tracheobronchial Tree, Via Natural or Artificial Opening Endoscopic (ICD-10-PCS; 2017-03-14)
DX: I61.0 Nontraumatic intracerebral hemorrhage in hemisphere, subcortical (principal); R40.20 Unspecified coma; E43 Unspecified severe protein-calorie malnutrition; G93.40 Encephalopathy, unspecified; R13.10 Dysphagia, unspecified; E11.22 Type 2 diabetes mellitus with diabetic chronic kidney disease; G20 Parkinson's disease; I12.0 Hypertensive chronic kidney disease with stage 5 chronic kidney disease or end stage renal disease; N18.6 End stage renal disease; J96.01 Acute respiratory failure with hypoxia; J98.11 Atelectasis; E11.51 Type 2 diabetes mellitus with diabetic peripheral angiopathy without gangrene; Z68.20 Body mass index [BMI] 20.0-20.9, adult; R62.7 Adult failure to thrive; Z88.8 Allergy status to other drugs, medicaments and biological substances; Z79.4 Long term (current) use of insulin; E78.5 Hyperlipidemia, unspecified; I69.398 Other sequelae of cerebral infarction; Z99.2 Dependence on renal dialysis; E11.65 Type 2 diabetes mellitus with hyperglycemia; I25.10 Atherosclerotic heart disease of native coronary artery without angina pectoris; I25.2 Old myocardial infarction; Z95.1 Presence of aortocoronary bypass graft; R25.8 Other abnormal involuntary movements; Z98.890 Other specified postprocedural states; Z79.82 Long term (current) use of aspirin; Z79.01 Long term (current) use of anticoagulants; D63.1 Anemia in chronic kidney disease; E87.6 Hypokalemia; R53.81 Other malaise; Z91.81 History of falling; D72.829 Elevated white blood cell count, unspecified; R50.9 Fever, unspecified
CPT/HCPCS: C1713; C1751; C1894; C9113; J0360; J0690; J0885; J1756; J1815; J1953; J2720; J3480; J7030; J7050; J7999